=== PATIENT | male | born 1990 | race African-American/Black ===

== ENCOUNTER 2020-09-29 13:16 | Emergency (ER) | payer SELFPAY ==
[~2020-09-29] VITALS: Ht 182.9 cm; Wt 72.7 kg
[2020-09-29 13:23] VITALS: BP 119/82; TEMP 97.8
[2020-09-29] MEDS ORDERED: CLEOCIN HC150 MG/CAP PO (13:55)
[2020-09-29] MEDS ORDERED: DAZIDOX10 MG PO (13:55)
[2020-09-29 14:03] VITALS: PULSE 74
== END 2020-09-29 14:05 | disposition home or self-care (01) ==
LOC: COL.ER 13:16
DX: K08.9 Disorder of teeth and supporting structures, unspecified (principal); Z87.891 Personal history of nicotine dependence; Z98.818 Other dental procedure status; Z88.5 Allergy status to narcotic agent

== ENCOUNTER 2020-11-28 11:29 | Emergency (ER) | payer SELFPAY ==
[~2020-11-28] VITALS: Ht 182.9 cm; Wt 72.7 kg
[~2020-11-28 11:29] MED LIST: CLEOCIN HC150 MG/CAP PO; DAZIDOX10 MG PO
[2020-11-28 11:40] VITALS: TEMP 98.3
[2020-11-28] MEDS ORDERED: NORCO 325 MG-51 TAB PO (12:01)
[2020-11-28 12:16] VITALS: BP 118/75; PULSE 81
== END 2020-11-28 12:15 | disposition home or self-care (01) ==
LOC: COL.ER 11:29
DX: S92.911A Unspecified fracture of right toe(s), initial encounter for closed fracture (principal); X58.XXXA Exposure to other specified factors, initial encounter

== ENCOUNTER 2020-12-17 08:20 | Emergency (ER) | payer SELFPAY ==
[~2020-12-17] VITALS: Ht 182.9 cm; Wt 72.7 kg
[~2020-12-17 08:20] MED LIST changes: +NORCO 325 MG-51 TAB PO
[2020-12-17 08:25] VITALS: BP 133/85; TEMP 97.6
[2020-12-17] MEDS ORDERED: NORCO 325 MG-51 TAB PO ×3 (08:39→09:08)
[2020-12-17 09:15] VITALS: PULSE 70
== END 2020-12-17 09:15 | disposition home or self-care (01) ==
LOC: COL.ER 08:20
DX: S92.911G Unspecified fracture of right toe(s), subsequent encounter for fracture with delayed healing (principal); X58.XXXD Exposure to other specified factors, subsequent encounter

== ENCOUNTER 2021-12-21 18:22 | Emergency (ER) | payer SELFPAY ==
[~2021-12-21] VITALS: Ht 182.9 cm; Wt 77.3 kg
[2021-12-21 18:33] VITALS: BP 122/82; TEMP 98
[2021-12-21 19:01] VITALS: PULSE 89
== END 2021-12-21 19:01 | disposition home or self-care (01) ==
LOC: COL.ER 18:22
DX: S20.211A Contusion of right front wall of thorax, initial encounter (principal); Z28.310 Unvaccinated for COVID-19; V29.3XXA Motorcycle rider (driver) (passenger) injured in unspecified nontraffic accident, initial encounter